=== PATIENT | male | born 2000 | race Caucasian/White ===

== ENCOUNTER 2023-12-30 15:15 | Emergency (ER) | payer MEDICAID, SELFPAY ==
[2023-12-30 15:18] VITALS: BP 123/71; PULSE 78; RESP 14; TEMP 36.9; O2SAT 99; BMI 19.8
[2023-12-30 15:44] LABS: Basophils # 0.1 10^3/uL (0.0-0.1); Basophils % 0.7 %; Eosinophils # 0.2 10^3/uL (0.0-0.8); Eosinophils % 1.9 %; Hematocrit 41.1 % (37-53); Lymphocytes # 2.8 10^3/uL (0.8-4.8); Mean Corpuscular HGB Conc 35.5 g/dL (30-55); Mean Corpuscular Hemoglobin 30.9 pg (27-33); Mean Corpuscular Volume 87.1 fl (82-101); Mean Platelet Volume 8.9 fL (7.4-10.4); Monocytes # 0.5 10^3/uL (0.2-0.9); Monocytes % 5.9 %; Neutrophils # 4.51 10^3/uL (1.8-7.7); Neutrophils % 56.3 %; Nucleated Red Blood Cells % 0 %; Platelet Count 222 10^3/cmm (157-399); Red Blood Count 4.72 10^6/uL (3.85-5.65); Red Cell Distribution Width 11.7 % (12.1-15.1); White Blood Count 8.02 10^3/uL (3.29-11.43)
[2023-12-30 16:04] LABS: Alanine Aminotransferase 15 U/L (0-41); Albumin Level 4.8 g/dL (3.5-5.2); Alkaline Phosphatase 71 U/L (40-130); Anion Gap 14.9 (5-19); Aspartate Amino Transferase 19 U/L (0-40); Blood Urea Nitrogen 13 mg/dL (6-20); Calcium 9.5 mg/dL (8.5-10.5); Carbon Dioxide 27 mmol/L (22-29); Chloride 102 mmol/L (98-107); Creatinine Clr Calc Pharmacy 116.6873; Globulin 2.5 g/dL (1.3-4.6); Glomerular Filtration Rate 104.6 mL/min (90-130); Glucose 102 mg/dL (65-115); Osmolality Calculated 290 mOsm/kg (285-295); Potassium 3.9 mmol/L (3.5-5.1); Sodium 140 mmol/L (136-145); Total Bilirubin 0.7 mg/dL (0.15-1.2); Total Protein 7.3 g/dL (6.6-8.7)
[2023-12-30 16:14] LABS: Add Urine Microscopic? YES; Bilirubin Urine Neg (Negative); Blood Urine 2+ (Negative); Glucose Urine UA Norm (Normal); Ketones Urine Negative (Negative); Leukocyte Esterase Urine Negative (Negative); Nitrate Urine Negative (Negative); Protein Urine Neg (Negative); Urine Appearance Cloudy (CLEAR); Urine Color Yellow (Yellow); Urobilinogen Urine 1 mg/dL (Negative); WBC Urine 0-4 /hpf (0-5); pH Urine 5 (5-7)
[2023-12-30 16:15] LABS: Amorphous Sediment Urine 1+ /hpf; Squamous Epithelial Cell Urine RARE /hpf (0-5)
--- NOTE | 2023-12-30 17:36 | W.ED.GENADLT ---
Documented by User: Sourav Beard DO 12/30/23 21:07 HPI - General Adult General: Chief complaint: Abdominal Pain Stated complaint: blood in urine Time Seen by Provider: 12/30/23 17:35 Source: patient Mode of arrival: ambulatory History of Present Illness: 23-year-old male presents emergency room complaining hematuria and right flank pain right lower quadrant pain radiating to the groin. Began this morning and noticed large amounts hematuria improved as the day went on until now he states its mostly resolved. He denies any recent trauma and denies any known history of nephrolithiasis no urethral drainage. He said in the right lower quadrant and feels like he may have pulled a muscle. No fever sweats or chills Onset (ago): hour(s) Relieving factors: none Exacerbating factors: none Associated symptoms: Deny chest pain, confusion, cough, diaphoresis, decreased appetite, dyspnea, fevers/chills, headache(s), malaise, nausea, rash, palpitations, seizures, short of breath, syncope, vomiting or weakness Treatments prior to arrival: none Review of Systems Const: Denies: malaise or diaphoresis Card: Denies: chest pain, palpitations or syncope Resp: Denies: dyspnea GI: Reports: abdominal pain; Denies: nausea or vomiting : Reports: flank pain, urinary frequency and hematuria; Denies: dysuria or urinary urgency Musc: Denies: neck pain or back pain Skin/Breast: Denies: rash Neuro: Denies: headache(s) or confusion Physical Exam Const: COMMON NORMALS: no acute distress GENERAL APPEARANCE: cooperative and comfortable ORIENTATION/CONSCIOUSNESS: Yes awake, Yes oriented to person, Yes oriented to place and Yes oriented to time HENMT: COMMON NORMALS: normocephalic, atraumatic and hearing grossly normal bilaterally HEAD & SCALP: normocephalic and atraumatic Resp: COMMON NORMALS: normal respiratory effort, No retractions, No use of accessory muscles and clear to auscultation bilaterally AUSCULTATION: clear to auscultation bilaterally Cardio: COMMON NORMALS: regular rate, regular rhythm and No murmurs present (Cardio) RATE: regular rate RHYTHM: regular rhythm GI: COMMON NORMALS: Soft to palpation and No hepatosplenomegaly present AUSCULTATION: Yes normoactive bowel sounds PALPATION: Yes Soft to palpation, No Tenderness to palpation present (GI), No Guarding due to palpation present (GI) and Yes No hepatosplenomegaly present Extremity: COMMON NORMALS: normal to inspection, capillary refill normal, no clubbing, cyanosis or edema, no calf tenderness and no pedal edema Neuro: SENSORIUM/ORIENTATION: Yes oriented to person, Yes oriented to place and Yes oriented to time Skin: COMMON NORMALS: no rashes or lesions noted GENERAL SKIN EXAM: no rashes or lesions noted Course Vital Signs: Vital signs: Vital Signs Temperature 98.5 F 12/30/23 15:18 Pulse Rate 60 12/30/23 19:48 Respiratory Rate 14 12/30/23 15:18 Blood Pressure 116/69 12/30/23 19:48 Pulse Oximetry 100 12/30/23 19:48 Oxygen Delivery Me thod Room Air 12/30/23 17:52 MDM - General Adult Medical Decision Making Care signed out to Dr. Vega at change of shift. See final notes for diagnosis and disposition. Lab Data 12/30/23 15:36 12/30/23 15:36 Radiology Impressions Abdomen/Pelvis CT 12/30/23 17:44 IMPRESSION: 1. Limited noncontrast examination without CT evidence of acute intra-abdominal or pelvic pathology. 2. Additional findings, as above. Laboratory Results WBC 8.02 10^3/uL (3.29-11.43) 12/30/23 15:36 RBC 4.72 10^6/uL (3.85-5.65) 12/30/23 15:36 Hgb 14.60 g/dL (11.27-16.99) 12/30/23 15:36 Hct 41.1 % (37-53) 12/30/23 15:36 MCV 87.1 fl (82-101) 12/30/23 15:36 MCH 30.9 pg (27-33) 12/30/23 15:36 MCHC 35.5 g/dL (30-55) 12/30/23 15:36 RDW 11.7 % (12.1-15.1) L 12/30/23 15:36 Plt Count 222 10^3/cmm (157-399) 12/30/23 15:36 MPV 8.9 fL (7.4-10.4) 12/30/23 15:36 Neut % (Auto) 56.3 % 12/30/23 15:36 Lymph % (Auto) 35.0 % 12/30/23 15:36 [place] % (Auto) 5.9 % 12/30/23 15:36 Eos % (Auto) 1.9 % 12/30/23 15:36 Baso % (Auto) 0.7 % 12/30/23 15:36 Neut # (Auto) 4.51 10^3/uL (1.8-7.7) 12/30/23 15:36 Lymph # (Auto) 2.8 10^3/uL (0.8-4.8) 12/30/23 15:36 [place] # (Auto) 0.5 10^3/uL (0.2-0.9) 12/30/23 15:36 Eos # (Auto) 0.2 10^3/uL (0.0-0.8) 12/30/23 15:36 Baso # (Auto) 0.1 10^3/uL (0.0-0.1) 12/30/23 15:36 Nucleated RBC % (auto) 0 % 12/30/23 15:36 Nucleated RBCs # 0.0 /100WBC 12/30/23 15:36 Sodium 140 mmol/L (136-145) 12/30/23 15:36 Potassium 3.9 mmol/L (3.5-5.1) 12/30/23 15:36 Chloride 102 mmol/L (98-107) 12/30/23 15:36 Carbon Dioxide 27 mmol/L (22-29) 12/30/23 15:36 Anion Gap 14.9 (5-19) 12/30/23 15:36 BUN 13 mg/dL (6-20) 12/30/23 15:36 Creatinine 0.9 mg/dL (0.7-1.2) 12/30/23 15:36 GFR Calculation 104.6 mL/min (90-130) 12/30/23 15:36 Glucose 102 mg/dL (65-115) 12/30/23 15:36 Calculated Osmolality 290 mOsm/kg (285-295) 12/30/23 15:36 Calcium 9.5 mg/dL (8.5-10.5) 12/30/23 15:36 Total Bilirubin 0.7 mg/dL (0.15-1.2) 12/30/23 15:36 AST 19 U/L (0-40) 12/30/23 15:36 ALT 15 U/L (0-41) 12/30/23 15:36 Alkaline Phosphatase 71 U/L (40-130) 12/30/23 15:36 Total Protein 7.3 g/dL (6.6-8.7) 12/30/23 15:36 Albumin 4.8 g/dL (3.5-5.2) 12/30/23 15:36 Globulin 2.5 g/dL (1.3-4.6) 12/30/23 15:36 Urine Color Yellow (Yellow) 12/30/23 15:44 Urine Appearance Cloudy (CLEAR) A 12/30/23 15:44 Urine pH 5 (5-7) 12/30/23 15:44 Ur Specific [place] 1.010 (1.005-1.030) 12/30/23 15:44 Urine Protein Neg (Negative) 12/30/23 15:44 Urine Glucose (UA) Norm (Normal) 12/30/23 15:44 Urine Ketones Negative (Negative) 12/30/23 15:44 Urine Blood 2+ (Negative) H 12/30/23 15:44 Urine Nitrate Negative (Negative) 12/30/23 15:44 Urine Bilirubin Neg (Negative) 12/30/23 15:44 Urine Urobilinogen 1 mg/dL (Negative) H 12/30/23 15:44 Ur Leukocyte Esterase Negative (Negative) 12/30/23 15:44 Urine RBC 5-10 /hpf (0-2) H 12/30/23 15:44 Urine WBC 0-4 /hpf (0-5) H 12/30/23 15:44 Ur Squamous Epith Cells Rare /hpf (0-5) 12/30/23 15:44 Amorphous Sediment 1+ /hpf 12/30/23 15:44 Urine Bacteria None /hpf (NONE) 12/30/23 15:44 Discharge Plan Discharge Patient Disposition: Home Clinical Impression: Abdominal pain, Hematuria Condition: Stable Discharge Orders: Discharge ED (Routine); Ordered 12/30/23 Ordered By: Sarah Vega Patient Instructions: Abdominal Pain (ED) Activity Restrictions/Additional Instructions: Thank you for choosing [facility] for your healthcare needs today. Please realize this is an emergency room and that we are providing you with a medical screening exam and this may not be complete and all inclusive of all the testing and or work up that you may need to determine your ailment or severity of your illness. You have been screened and evaluated and felt safe for discharge. Health conditions do change or evolve sometimes and as such it is important that you follow up with your Primary Doctor to be re checked, 3-5 days is a general good time frame for follow up. You are always welcome to return to the ED for re assessment if your symptoms are worsening or you have new concerns Coding Level of Care Code ED Disability Examiner for Chg Fwd Documented by User: Sarah Vega MD 12/30/23 19:33 HPI - General Adult General: Chief complaint: Abdominal Pain Stated complaint: blood in urine Time Seen by Provider: 12/30/23 17:35 Course Vital Signs: Vital signs: Vital Signs Temperature 98.5 F 12/30/23 15:18 Pulse Rate 60 12/30/23 19:48 Respiratory Rate 14 12/30/23 15:18 Blood Pressure 116/69 12/30/23 19:48 Pulse Oximetry 100 12/30/23 19:48 Oxygen Delivery Or thod Room Air 12/30/23 17:52 MDM - General Adult Medical Decision Making Care signed out to Dr. Vega at change of shift. See final notes for diagnosis and disposition. Patient was passed to me for radiology follow-up. CT scan shows no acute process. Given hematuria and pain seems at most likely has passed small kidney stone. Assessment and plan: Flank pain Hematuria - Discharged home - Discussed plan with patient. Answered any questions. - Evaluation and treatment of this problem were appropriate in the emergency setting. Lab Data 12/30/23 15:36 12/30/23 15:36 Radiology Impressions Abdomen/Pelvis CT 12/30/23 17:44 IMPRESSION: 1. Limited noncontrast examination without CT evidence of acute intra-abdominal or pelvic pathology. 2. Additional findings, as above. Laboratory Results WBC 8.02 10^3/uL (3.29-11.43) 12/30/23 15:36 RBC 4.72 10^6/uL (3.85-5.65) 12/30/23 15:36 Hgb 14.60 g/dL (11.27-16.99) 12/30/23 15:36 Hct 41.1 % (37-53) 12/30/23 15:36 MCV 87.1 fl (82-101) 12/30/23 15:36 MCH 30.9 pg (27-33) 12/30/23 15:36 MCHC 35.5 g/dL (30-55) 12/30/23 15:36 RDW 11.7 % (12.1-15.1) L 12/30/23 15:36 Plt Count 222 10^3/cmm (157-399) 12/30/23 15:36 MPV 8.9 fL (7.4-10.4) 12/30/23 15:36 Neut % (Auto) 56.3 % 12/30/23 15:36 Lymph % (Auto) 35.0 % 12/30/23 15:36 [place] % (Auto) 5.9 % 12/30/23 15:36 Eos % (Auto) 1.9 % 12/30/23 15:36 Baso % (Auto) 0.7 % 12/30/23 15:36 Neut # (Auto) 4.51 10^3/uL (1.8-7.7) 12/30/23 15:36 Lymph # (Auto) 2.8 10^3/uL (0.8-4.8) 12/30/23 15:36 [place] # (Auto) 0.5 10^3/uL (0.2-0.9) 12/30/23 15:36 Eos # (Auto) 0.2 10^3/uL (0.0-0.8) 12/30/23 15:36 Baso # (Auto) 0.1 10^3/uL (0.0-0.1) 12/30/23 15:36 Nucleated RBC % (auto) 0 % 12/30/23 15:36 Nucleated RBCs # 0.0 /100WBC 12/30/23 15:36 Sodium 140 mmol/L (136-145) 12/30/23 15:36 Potassium 3.9 mmol/L (3.5-5.1) 12/30/23 15:36 Chloride 102 mmol/L (98-107) 12/30/23 15:36 Carbon Dioxide 27 mmol/L (22-29) 12/30/23 15:36 Anion Gap 14.9 (5-19) 12/30/23 15:36 BUN 13 mg/dL (6-20) 12/30/23 15:36 Creatinine 0.9 mg/dL (0.7-1.2) 12/30/23 15:36 GFR Calculation 104.6 mL/min (90-130) 12/30/23 15:36 Glucose 102 mg/dL (65-115) 12/30/23 15:36 Calculated Osmolality 290 mOsm/kg (285-295) 12/30/23 15:36 Calcium 9.5 mg/dL (8.5-10.5) 12/30/23 15:36 Total Bilirubin 0.7 mg/dL (0.15-1.2) 12/30/23 15:36 AST 19 U/L (0-40) 12/30/23 15:36 ALT 15 U/L (0-41) 12/30/23 15:36 Alkaline Phosphatase 71 U/L (40-130) 12/30/23 15:36 Total Protein 7.3 g/dL (6.6-8.7) 12/30/23 15:36 Albumin 4.8 g/dL (3.5-5.2) 12/30/23 15:36 Globulin 2.5 g/dL (1.3-4.6) 12/30/23 15:36 Urine Color Yellow (Yellow) 12/30/23 15:44 Urine Appearance Cloudy (CLEAR) A 12/30/23 15:44 Urine pH 5 (5-7) 12/30/23 15:44 Ur Specific [place] 1.010 (1.005-1.030) 12/30/23 15:44 Urine Protein Neg (Negative) 12/30/23 15:44 Urine Glucose (UA) Norm (Normal) 12/30/23 15:44 Urine Ketones Negative (Negative) 12/30/23 15:44 Urine Blood 2+ (Negative) H 12/30/23 15:44 Urine Nitrate Negative (Negative) 12/30/23 15:44 Urine Bilirubin Neg (Negative) 12/30/23 15:44 Urine Urobilinogen 1 mg/dL (Negative) H 12/30/23 15:44 Ur Leukocyte Esterase Negative (Negative) 12/30/23 15:44 Urine RBC 5-10 /hpf (0-2) H 12/30/23 15:44 Urine WBC 0-4 /hpf (0-5) H 12/30/23 15:44 Ur Squamous Epith Cells Rare /hpf (0-5) 12/30/23 15:44 Amorphous Sediment 1+ /hpf 12/30/23 15:44 Urine Bacteria None /hpf (NONE) 12/30/23 15:44 All radiology interpretation(s) finalized by discharge Discharge Plan Discharge Patient Disposition: Home Clinical Impression: Abdominal pain, Hematuria Condition: Stable Discharge Orders: Discharge ED (Routine); Ordered 12/30/23 Ordered By: Sarah Vega Patient Instructions: Abdominal Pain (ED) Activity Restrictions/Additional Instructions: Thank you for choosing [facility] for your healthcare needs today. Please realize this is an emergency room and that we are providing you with a medical screening exam and this may not be complete and all inclusive of all the testing and or work up that you may need to determine your ailment or severity of your illness. You have been screened and evaluated and felt safe for discharge. Health conditions do change or evolve sometimes and as such it is important that you follow up with your Primary Doctor to be re checked, 3-5 days is a general good time frame for follow up. You are always welcome to return to the ED for re assessment if your symptoms are worsening or you have new concerns Coding Level of Care Code ED Disability Examiner for Maki Polanco
--- NOTE | 2023-12-30 17:44 | CTR_ITS ---
PROCEDURE INFORMATION: Exam: CT Abdomen And Pelvis Without Contrast Exam date and time: 12/30/2023 5:49 PM Age: 23 years old Clinical indication: Abdominal pain; Localized; Right lower quadrant (rlq); Patient HX: Patient peeing blood, sometimes has rlq pain; Additional info: Flank pain TECHNIQUE: Imaging protocol: Computed tomography of the abdomen and pelvis without contrast. Axial, coronal and sagittal reformatted images were created and reviewed. Radiation optimization: All CT scans at this facility use at least one of these dose optimization techniques: automated exposure control; mA and/or kV adjustment per patient size (includes targeted exams where dose is matched to clinical indication); or iterative reconstruction. COMPARISON: No relevant prior studies available. RADIATION DOSE METRICS: Total DLP (mGy-cm): 319 FINDINGS: Liver: Unremarkable. Gallbladder and bile ducts: No radiodense gallstones. No biliary ductal dilatation. Pancreas: Unremarkable. Spleen: Unremarkable. Adrenal glands: Normal. No mass. Kidneys and ureters: No mass. No radiodense calculi. No hydronephrosis. Stomach and bowel: No bowel wall thickening. No obstruction. No pneumatosis. Appendix: Normal. Intraperitoneal space: No free fluid. No organized fluid collection. No free air. Vasculature: Unremarkable. No aneurysm. Lymph nodes: Procto small nodes mesenteric Urinary bladder: Mild circumferential urinary bladder wall thickening, likely secondary to underdistention. Reproductive: Unremarkable. Bones/joints: No acute osseous abnormality. Soft tissues: Unremarkable. CT/CT kidney stone [id number] IMPRESSION: 1. Limited noncontrast examination without CT evidence of acute intra-abdominal or pelvic pathology. 2. Additional findings, as above.
[2023-12-30 17:52] VITALS: BP 106/71; PULSE 56; O2SAT 100
[2023-12-30] MEDS: sodium chloride 0.9% 1,000 ML 999 ML IV (18:06)
--- NOTE | 2023-12-30 18:49 | PC.NURSE ---
Assumed care from Lesvia BHAKTA at this time.
[2023-12-30 18:51] VITALS: BP 106/70; PULSE 64; O2SAT 100
[2023-12-30 19:48] VITALS: BP 116/69; PULSE 60; O2SAT 100
== END 2023-12-30 19:41 | disposition home or self-care (01) ==
PROVIDERS: Physician Assistant; Emergency Provider Emergency Medicine
DX: R31.9 Hematuria, unspecified (principal); R10.31 Right lower quadrant pain
CPT/HCPCS: 36415; 74176; 80053; 81001; 85025; 99284; J7030